=== PATIENT | male | born 1980 | race Caucasian/White ===

== ENCOUNTER 2024-04-30 11:36 | Emergency (ER) | payer OTHER, SELFPAY ==
--- NOTE | 2024-04-30 11:49 | ED.URI ---
HPI - URI/Sore Throat General Chief Complaint: Upper Respiratory Infection Stated Complaint: throat/chest congestion/cough Time Seen by Provider: 04/30/24 12:00 Source: patient Mode of arrival: ambulatory Limitations: no limitations History of Present Illness HPI Narrative: Uriah is a 43-year-old male patient presenting to the clinic today with complaints of sore throat, fever, body aches, chest congestion, and cough x5 days. He denies any chest pain or shortness of breath. MD elicited complaint: sore throat and nasal congestion Related Data Home Medications ?Medication ?Instructions ?Recorded ?Confirmed ?Last Taken ?Type nifedipine 30 mg tablet,extended mg PO 04/30/24 Unknown History release 24 hr propranolol 80 mg capsule,24 mg PO 04/30/24 Unknown History hr,extended release semaglutide (weight loss) 2.4 mg subcut 04/30/24 Unknown History mg/0.75 mL subcutaneous pen injector (Wegovy) tadalafil 5 mg tablet mg 04/30/24 Unknown History Allergies Allergy/AdvReac Type Severity Reaction Status Date / Time oseltamivir Allergy Unknown Nausea Verified 04/30/24 11:52 Review of Systems Review of Systems: Pertinent positives per HPI. Patient denies any rash, headache, visual changes, dizziness, shortness of breath, chest pain, palpitations, nausea, vomiting, diarrhea, constipation, abdominal pain, or any urinary issues. PMFSH Comments At the time of my signature, I reviewed and agree with the nursing past medical, surgical, social, and family history. There is no relevant family history pertinent to the patient complaint. Exam Narrative: General: Well-developed, well nourished, in no apparent distress Head: Normocephalic, atraumatic Eyes: Pupils equally round and reactive to light bilaterally, EOM intact, sclera and conjunctive clear, no discharge, lids normal Ears: TMs intact and congested, ear canals clear, no drainage, grossly hearing normal. Nose: Nares patent, clear nasal discharge, no inflammation, no sinus tenderness. Mouth: Oral pharynx red without lesions or masses, good dentition, MMM. Postnasal drip Neck: Supple, trachea midline, no enlargement of anterior or posterior cervical nodes, no thyroid masses or goiter palpable. Cardio: Regular rate and rhythm, s1 and s2 normal, no murmur appreciated. Resp: Clear to auscultation bilaterally, no rhonchi, rales, wheezing or rubs Course Course Emergency Course: Portions of this record may have been created with voice recognition software. Level of Care: Express Care Visit Vital Signs Vital signs: Vital Signs Temperature 36.9 C 04/30/24 11:53 Pulse Rate 91 04/30/24 11:53 Respiratory Rate 16 04/30/24 11:53 Blood Pressure 132/99 H 04/30/24 11:53 Pulse Oximetry 99 04/30/24 11:53 Temperature 36.9 C 04/30/24 11:53 Pulse Rate 91 04/30/24 11:53 Respiratory Rate 16 04/30/24 11:53 Blood Pressure 132/99 H 04/30/24 11:53 Pulse Oximetry 99 04/30/24 11:53 Oxygen Delivery Room Air 04/30/24 11:54 Vital signs reviewed MDM - URI/Sore Throat MDM Narrative Medical decision making narrative: At the time of visit patient is resting comfortably on the exam table. Patient appears to be nontoxic. Labs: COVID, influenza, and strep test were all performed in the clinic today. Influenza a testing was positive. COVID and strep test were negative. We will send strep for culture. Plan: Patient has influenza A. Prescription for Tessalon Perles was sent to the pharmacy per patient's request. Supportive measures were discussed with the patient and they voiced understanding discharge instructions and agrees to treatment plan. Return precautions reviewed Differential Diagnosis Differential diagnosis: Likely upper respiratory infection, otitis media, sinusitis, viral infection, bronchitis, influenza, pharyngitis and other (COVID) Lab Data Labs: Lab Results 04/30/24 Range/Units 12:01 POC Influenza A Ag Positive (Negative) POC Influenza B Ag Negative (Negative) POC SARS CoV-2 Ag Negative (Negative) POC Grp A Strep Screen Negative (Negative) Discharge Plan Discharge Clinical Impression: Influenza A Patient Disposition: Home, Self-Care Condition: Stable Instructions: Antibiotic Form, Influenza (ED) Additional Instructions: Influenza A testing is positive in the clinic today. May take DayQuil/NyQuil for cold/flu symptoms Take prescription medications only as prescribed-Tessalon Perles Increase fluids and stay well hydrated Tylenol/motrin for pain/fever Flonase and OTC antihistamines as directed Vicks vapor rub to open sinuses Sinus rinses for congestion Cepacol spray, cough drops, throat lozenges, warm tea with honey/lemon, gargle salt water to soothe throat BRAT diet for diarrhea Clear liquids x 24 hours then advance as tolerated for nausea/vomiting Go to the ED if you develop a worsening in your condition- high fever not controlled by Tylenol or Motrin, dehydration, weakness, lethargy, shortness of breath, or chest pain. Follow up with your PCP in 3-5 days if symptoms persist. Patient Language: Danish Prescriptions: New benzonatate 200 mg capsule 200 mg PO TID PRN (Reason: cough) 7 Days Qty: 21 0RF No Action nifedipine 30 mg tablet extended release 24hr PO propranolol 80 mg capsule,extended release 24 hr PO tadalafil 5 mg tablet Wegovy 2.4 mg/0.75 mL pen injector SUBCUT Follow-up/Referrals: PHYSICIAN NOT ON STAFF,NONSTAFF [Primary Care Provider] - Time of Disposition: 12:30 Quality NIHSS Nursing Documentation ED NIHSS nursing documentation: reviewed/agree
[2024-04-30 11:53] VITALS: BP 132/99; PULSE 91; RESP 16; TEMP 36.9; O2SAT 99
[2024-04-30 12:03] LABS: EDCOVIDSCREEN Negative (Negative)
[2024-04-30 12:04] LABS: EDINFLUASCREEN Positive (Negative); EDINFLUBSCREEN Negative (Negative); EDSTREPNEGPOS1 Negative (Negative)
== END 2024-04-30 12:32 | disposition home or self-care (01) ==
PROVIDERS: Emergency Provider Nurse Practitioner Family
DX: J10.1 Influenza due to other identified influenza virus with other respiratory manifestations (principal); Z20.822 Contact with and (suspected) exposure to COVID-19
CPT/HCPCS: 87081; 87426; 87804; 87880; 99203; G0463